=== PATIENT | female | born 1990 | race Caucasian/White ===

== ENCOUNTER 2023-02-17 12:05 | Outpatient (CLI) | payer OTHER, SELFPAY ==
--- NOTE | 2023-02-17 12:15 | CRLHL7_ITS ---
For Patients: As a result of the Century Cures Act, medical imaging exams and procedure reports are released immediately into your electronic medical record. You may view this report before your referring provider. If you have questions, please contact your health care provider. INDICATION: First trimester scan, establish dates. COMPARISON: None. TECHNIQUE: Real-time bunch-scale imaging of the pelvis was performed. FINDINGS: Sonographic imaging demonstrates a single living intrauterine gestation. The embryo demonstrates a regular cardiac rate measuring 177 beats per minute. The embryo`s crown-rump length measurement of 2.4 cm corresponds to a gestational age of 9 weeks 1 day with a sonographic due date of 09/21/2023. There is a normal-appearing yolk sac. There are no gross abnormalities noted within the embryo at this early state of development. The gestational sac has a normal appearance. There is a 1.2 x 2.0 x 1.5 cm perigestational hemorrhage. The amount of fluid within the sac appears appropriate for gestational age. The cervix is closed. The myometrium appears normal. The ovaries are of normal size. Corpus luteal cyst right ovary. There are no suspicious fluid collections noted in the cul-de-sac. IMPRESSION: Single living intrauterine with sonographic gestational age 9 weeks 1 day and sonographic due date 09/21/2023. Subchorionic hemorrhage measuring 1.2 x 2.0 x 1.5 cm. Dictated by Shahzad Craig MD @ 02/17/2023 12:49:15 PM (Electronically Signed)
== END 2023-02-17 12:06 | disposition home or self-care (01) ==
PROVIDERS: Visit Provider Registered Nurse
DX: Z34.91 Encounter for supervision of normal pregnancy, unspecified, first trimester (principal); Z3A.09 9 weeks gestation of pregnancy
CPT/HCPCS: 76817; 86592; 86703; 86762; 86787; 86803; 86850; 86900; 86901; 87086; 87340; 87491; 87591

== ENCOUNTER 2023-05-05 14:01 | Outpatient (CLI) | payer OTHER, SELFPAY ==
--- NOTE | 2023-05-05 14:00 | CRLHL7_ITS ---
For Patients: As a result of the Century Cures Act, medical imaging exams and procedure reports are released immediately into your electronic medical record. You may view this report before your referring provider. If you have questions, please contact your health care provider. INDICATION: Evaluate anatomy. COMPARISON: 02/17/2023 TECHNIQUE: Real time bunch scale imaging of the fetus was performed as well as color Doppler analysis of the umbilical vessels. FINDINGS: Sonographic imaging demonstrates a single living intrauterine gestation. Fetus demonstrates a regular cardiac rate of 138 beats per minute. Fetus has a breech position. The placenta lies posteriorly without evidence of placenta previa. The edge of the placenta is located 7.6 cm from the internal cervical os. Amniotic fluid volume appears normal. Single deepest vertical pocket: 3.9 cm. The cervix is closed and measures 4.4 cm in length. The composite ultrasound gestational age is calculated at 20 weeks 2 days with an estimated sonographic due date of 09/20/2023. The estimated weight is 357 grams which lies at the 66th %. The following biometric measurements were obtained: Biparietal diameter: 4.4 cm/19 weeks 2 days 17th% Head circumference: 17.0 cm/19 weeks 4 days 18th% Abdominal circumference: 15.9 cm/21 weeks 0 days 74th% Femur length: 3.3 cm/20 weeks 1 day 43rd% The HC/AC ratio measures: 1.06 range (1.07-1.25) On anatomic survey, there is a normal appearance of the cerebral ventricles, cavum septi pellucidi, cisterna magna and cerebellum. The nose, lips, and facial profile appear normal. The cervical, thoracic and lumbar spine are well visualized and appear normal. There is a normal four-chamber heart view and the left and right ventricular outflow tracts appear normal. The diaphragm and stomach appear normal. The kidneys and bladder also appear normal. There is a normal three-vessel cord and cord insertion site. The four extremities appear normal. IMPRESSION: Normal OB ultrasound exam with concordance of clinical and sonographic dating. No intrinsic abnormalities noted on anatomic survey. Dictated by Shahzad Craig MD @ 05/06/2023 10:12:47 AM (Electronically Signed)
== END 2023-05-05 14:02 | disposition home or self-care (01) ==
LOC: US 14:01
PROVIDERS: Visit Provider Obstetrics & Gynecology
DX: Z34.92 Encounter for supervision of normal pregnancy, unspecified, second trimester (principal); Z3A.20 20 weeks gestation of pregnancy
CPT/HCPCS: 76805

== ENCOUNTER 2023-07-07 09:45 | Outpatient (CLI) | payer BC, SELFPAY | END 2023-07-07 09:46 | disposition home or self-care (01) | LOC: NFLDREF 07-14 15:40 | PROVIDERS: Visit Provider Obstetrics & Gynecology | DX: Z34.92 Encounter for supervision of normal pregnancy, unspecified, second trimester (principal) | CPT/HCPCS: 86592 ==

== ENCOUNTER 2023-07-14 16:43 | Outpatient (CLI) | payer BC, SELFPAY ==
--- NOTE | 2023-07-14 17:00 | CRLHL7_ITS ---
For Patients: As a result of the Century Cures Act, medical imaging exams and procedure reports are released immediately into your electronic medical record. You may view this report before your referring provider. If you have questions, please contact your health care provider. INDICATION: Size less than dates TECHNIQUE: Limited transabdominal two-dimensional bunch-scale ultrasound examination. COMPARISON: 06/04/2023 FINDINGS: There is a living fetus with gestational age of 30 weeks 1 day by LMP and 31 weeks by today`s measurements. EDC based on LMP is 09/21/2023. BPD: 7.6 cm, 30 weeks 5 days Head circumference: 28.6 cm, 31 weeks 3 days Abdominal circumference: 27.4 cm, 31 weeks 3 days Femur length: 5.8 cm, 30 weeks 1 day The weight is estimated at 1678 grams, the 68th percentile. The heart rate is measured at 129 beats per minute and the rhythm appears regular. The amniotic fluid volume is within normal limits with single-view of the pocket of 7.0 cm. The placenta is posterior and superior to the cervical os. There is no evidence of previa. IMPRESSION: 1. Living fetus with gestational age of 30 weeks 1 day by LMP and 31 weeks by today`s measurements. EDC based on LMP is 09/21/2023. 2. weight estimated at 1670 grams, the 68th percentile. Dictated by René Asencio MD @ 07/16/2023 7:23:09 AM (Electronically Signed)
== END 2023-07-14 16:44 | disposition home or self-care (01) ==
PROVIDERS: PCP Obstetrics & Gynecology; Visit Provider Obstetrics & Gynecology
DX: O36.5930 Maternal care for other known or suspected poor fetal growth, third trimester, not applicable or unspecified (principal); Z3A.30 30 weeks gestation of pregnancy
CPT/HCPCS: 76816

== ENCOUNTER 2023-08-23 11:17 | Outpatient (CLI) | payer BC, SELFPAY ==
[2023-08-24 12:06] LABS: Strep B DNA Probe Negative (Negative)
[2023-08-24 12:47] LABS: Strep B Susceptibility Needed? No
== END 2023-08-23 11:18 | disposition home or self-care (01) ==
PROVIDERS: Visit Provider Obstetrics & Gynecology
DX: Z34.93 Encounter for supervision of normal pregnancy, unspecified, third trimester (principal)
CPT/HCPCS: 87081; 87653

== ENCOUNTER 2023-09-27 16:31 | Inpatient (IN) | payer BC, SELFPAY ==
[2023-09-27 16:41] VITALS: PULSE 84; O2SAT 96
[2023-09-27 16:42] VITALS: BP 121/80; PULSE 86; RESP 16; TEMP 36.6
[2023-09-27 16:50] VITALS: BMI 25.5
--- NOTE | 2023-09-27 17:35 | W.PM.LDBA ---
Subjective History of Present Illness Time Seen by Provider: 17:35 Date Seen: 09/27/23 Narrative: Patient is being admitted to Labor and Delivery for cervical ripening and induction of labor. She is a 32 year old at 40 6/7 weeks gestation. Her full history and physical was dictated by Dr. Doan on 09/01/23. Please see this for details. She feels well this evening. Thinks she lost her mucous plug juan past week. Is aware of occasional mild contractions. Fetus is active. 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 Doan on 09/01/2023 Genetic testing: normal, consistent with female 1. H/o depression anxiety during college. Off meds for few years and currently stable. Sees a therapist on a monthly basis. 2. History of anorexia during college. Denies any current concerns about anorexia or weight gain during . 3. History of kidney stones x 3 over the course of 4 years. Encouraged her to avoid calcium carbonate/Tums. 4. Size less than dates 07/14 growth US: EFW: 68th percentile, SDP: 7.0cm, Vertex. Covid: up to date Tdap: Given 07/14/23 Flu: Given RSV: NA H&P: 09/01 by Olimpia OB - Problem Based A/P Additional Plan (1) Post term over 40 weeks: Status: Acute Delivery/Labor/Induction Plan Induction method: Intracervical balloon catheter (40 mL placed in each balloon. Begin slow pit at 2100. IOL to follow tomorrow morning.) OB Result Labs Blood Type: O (+) positive Rubella: immune RPR/VDLR: nonreactive GBS Status: negative HBsAG: negative OB Exam Physical Exam Vital signs: Temp Pulse Resp BP Pulse Ox 97.9 F 86 16 121/80 96 09/27/23 16:42 09/27/23 16:42 09/27/23 16:42 09/27/23 16:42 09/27/23 16:41 Detailed Labor and Delivery Exam Patient Gravid: Yes Dilation (cm): 2 Effacement (%): 70 Cervix position: posterior Consistency: medium Cervical ripeness score: 6 Contraction Frequency: irregular, q2-4 minutes Tachysystole: No Contraction intensity: Mild Fetus (Single) Station: -1 Amniotic Membrane Status: intact Heart Rate Baseline: 130 Monitor Accelerations: Present Monitor Decelerations: None [employer] Variability: Moderate (6-25)
[2023-09-27 18:25] LABS: Basophils Absolute Auto 0.04 K/uL (0.00-0.30); Basophils Percent Auto 0.4 % (0.0-3.0); Eosinophils Absolute Auto 0.15 K/uL (0.00-0.50); Eosinophils Percent Auto 1.4 % (0.0-7.0); Hematocrit 39.2 % (33.0-51.0); Hemoglobin* 13.2 gm/dL (12.0-16.0); Immature Granulocytes Abs Auto 0.04 K/uL (0.00-0.30); Immature Granulocytes Pct Auto 0.4 %; Lymphocytes Absolute Auto 2.47 K/uL (0.90-2.90); Mean Corpuscular HGB Conc 34 gm/dL (32-36); Mean Corpuscular Hemoglobin 30 pg (26-34); Mean Corpuscular Volume 89 fL (80-100); Neutrophils Percent Auto 66.8 % (42.0-72.0); Platelet Count* 254 K/uL (140-440); RDW Coefficient of Variation % 12.5 % (11.5-15.5); Red Blood Count 4.41 m/uL (4.00-5.20); White Blood Count* 10.76 K/uL (4.50-11.00)
[2023-09-27 18:48] LABS: Slide Review Reflex No
[2023-09-27 20:59] VITALS: BP 120/68; PULSE 63; RESP 18; TEMP 36.9
[2023-09-27] MEDS: OXYTOCIN 30 unit/500 ML in NS 30 UNIT/500 ML BAG IVPB (21:00)
[2023-09-27] MEDS: LACTATED RINGERS 1000 ML 1,000 ML 124 ML IV (21:01)
[2023-09-27 21:59] VITALS: BP 110/69; PULSE 63
[2023-09-27 22:59] VITALS: BP 112/70; PULSE 68
[2023-09-27 23:59] VITALS: BP 111/70; PULSE 64; RESP 18; TEMP 36.9
[2023-09-28] VITALS (26 sets, daily range): BP systolic 101–135; BP diastolic 58–89; PULSE 68–142; RESP 12–21; TEMP 36.4–37; O2SAT 95–99
[2023-09-28] MEDS: ONDANSETRON 2 MG/ML inj 4 MG IV (01:26)
[2023-09-28] MEDS: LACTATED RINGERS 1000 ML 1,000 ML 500 ML IV (02:44)
--- NOTE | 2023-09-28 04:07 | W.PM.OBVAGDE ---
OB Procedure Vag Delivery Mother Details Mother Details: The patient is a 32 year-old, 1, Para 0, admitted on 09/27/23 at 40 6/7 weeks gestation for cervical ripening/induction of labor for postdates gestation. At the time of admission, her cervix was posterior, medium consistency, 2 cm dilated, 70% effaced, with vertex at a -1 station. A cook catheter was placed, with 40 mL sterile saline in each balloon at 1730. Low dose pitocin infusion was started at 2100. The Cook fell out at 0110 on 09/28/2023, at which time she began actively laboring. : 1 Para: 0 Weeks Gestation: 40.6 Admission Date: 09/27/23 Additional Details Amniotic Membrane Status: intact Amniotic Membrane Rupture Date: 09/28/23 Amniotic Membrane Rupture Time: 01:48 Amniotic Membrane Fluid Description: Meconium Stained (light) Analgesia/Anesthesia Type: None Waterbirth: No Pitcoin: Yes (maximum of 5 mu/min, decreased to 2 mu/min following SROM) Intrapartal Events: None and Precipitous Labor <3 Hrs Induction Method: Intracervical balloon catheter (with slow pitocin infusion) Labor Onset: 01:10 Complete: 02:25 Pushin:26 Heart: heart tones during second stage were 110 baseline with good variability, some variable and late decelerations with pushing, good return to baseline. Delivery Details Delivery Date: 09/28/23 Delivery Time: 03:33 Route of delivery: Gender: Female Viability: Alive; Heart Rate Present Delivery Details: Delivered over small right mediolateral episiotomy via spontaneous vaginal delivery. Infant was placed on maternal abdomen.? Cord was clamped and cut after a 30-60 second delay. Nose and mouth were bulb suctioned.? weight pending. 1 Minute Interval Total Score: 8 5 Minute Interval Total Score: 9 Additional Details Shoulder Dystocia: No Placenta Delivery Time: 03:37 Placental Delivery Description: Spontaneous Delivery repair: other (See separate operative report) Procedure Done: Global Blood Loss: 250 Laceration: Perineal - 4th Degree (and right labial 1st degree) Episiotomy Description: Right Mediolateral Blood Loss Measurement Type: QBL Bakri Used: No Sponge/Need Count Correct: Yes Cord Vessel Description: 3 Vessels Event Summary Status: Mother and infant were stable after delivery. Disposition: floor
--- NOTE | 2023-09-28 04:19 | PM.PROC ---
Procedure Note Date Seen: 09/28/23 Date of procedure: 09/28/23 Will [facility] bill your pro fee for this procedure?: Yes Pre-op diagnosis: 4th degree perineal laceration, right labial 1st degree laceration Post-op diagnosis: same (plus left labial/periurethral laceration) Procedure: Repair of 4th degree perineal and bilateral labial lacerations. Procedure Description: After obtaining informed consent, the patient was taken to the operating room where general endotracheal anesthesia was obtained without difficulty. She was prepared and draped in the normal sterile fashion in the dorsal lithotomy position. An examination was performed under anesthesia to confirm the extent of the repairs needed. It was apparent that the right mediolateral episiotomy extended inferiorly, in a counter-clockwise fashion to the midline where the anal sphincter and rectal mucosa were disrupted. There is also extension of the defect up the right labia. Another laceration was noted on the left, first degree labial and periurethral. A Roe catheter was sterilely inserted into the bladder. Attention was first turned to the rectal mucosa, which was torn in the midline a distance of 1 cm. The rectal mucosa was reapproximated in the running fashion using a 4-0 Vicryl suture on an SH needle. A second layer was closed over the first to reinforce the closure. The internal and external anal sphincters were grasped where they were retracted bilaterally with Allis clamps. The internal anal sphincter was reapproximated in an end-to-end fashion with three interrupted sutures of 2-0 Vicryl on an SH needle. The external anal sphincter was reapproximated in an end-to-end fashion with three interrupted sutures of 2-[address]-2 needle. The left labia was reapproximated from distal (superior) to proximal (inferior) in a subcuticular fashion using 3-0 Vicryl on an SH needle. A 3-0 Vicryl suture was then used to reapproximate the vaginal mucosa, in a running locking fashion. The suture was continued and used to reapproximate the bulbocavernosus muscles over the sphincter and to rebuild the perineal body. Finally, the suture was used to reapproximate the skin from anal verge back to the introitus, where the suture was tied off at the level of the hymen. The right labial/periurethral laceration was reapproximated in a subcuticular fashion with 3-0 chromic. A few running locking sutures of 3-0 chromic were also needed for hemostasis where the vaginal mucosa tore slightly during the repair. 10 mL 1% lidocaine was then injected into the perineum for postop analgesia. The patient tolerated the procedure well. Sponge, lap, needle, and instrument counts were reported as correct x2. The patient was taken to the recovery room awake and in stable condition. She received 2 g of IV Ancef preoperatively. Anesthesia: GETA Surgeon: Sintia Koo Estimated blood loss (mL): 100 Urine output (mL): 600 Pathology: none sent Condition: stable Disposition: PACU
[2023-09-28] MEDS: CEFAZOLIN 2 GM INJ IVP (05:08)
--- NOTE | 2023-09-28 06:25 | SUR.OPER ---
300 ml of urine in emerson
--- NOTE | 2023-09-28 06:51 | P.ANES_ITS ---
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
--- NOTE | 2023-09-28 07:22 | SUR.PHASEI ---
patient met discharge criteria per anesthesia
[2023-09-28] MEDS: ACETAMINOPHEN 500 MG TABLET 1000 MG PO ×3 (08:04→20:28)
[2023-09-28] MEDS: DOCUSATE SODIUM 100 MG CAPSULE PO ×2 (09:26→20:28)
[2023-09-28] MEDS: KETOROLAC 30 MG/ML inj IVP ×2 (12:46→18:37)
[2023-09-29 00:35] VITALS: BP 108/71; PULSE 66; RESP 16; TEMP 36.6; O2SAT 96
[2023-09-29] MEDS: KETOROLAC 30 MG/ML inj IVP ×3 (00:37→12:46)
[2023-09-29] MEDS: ACETAMINOPHEN 500 MG TABLET 1000 MG PO ×4 (03:38→21:25)
--- NOTE | 2023-09-29 07:12 | PM.OBPNVD1 ---
OB - PN:Subj Subjective Time Seen by Provider: 07:15 Date Seen: 09/29/23 Narrative: Karla is a 32yo seen on PPD1 from precipitous complicated by RML episiotomy and 4th degree laceration. Her was uncomplicated. Patient is feeling well today with no acute concerns. We reviewed her labor course in detail, where she said things were more intense than she had expected but that she feels the experience was good. She is understandably apprehensive about her bottom healing, where we discussed perineal care. She does have some tenderness on the perineum, but overall her pain is well controlled with ibuprofen and Tylenol. Lochia is moderate, decreasing with time. She is passing gas, no bowel movement. Voiding spontaneously without difficulty. Appetite is good, no nausea or vomiting. She ambulates without dizziness or lightheadedness. Karla is baby Sonali. She feels this is going well but is excited to meet with today for additional support. OB - PN: Obj Exam Physical Exam: Vital signs: Temp Pulse Resp BP Pulse Ox O2 Del Method 97.8 F 66 16 108/71 96 Room Air 09/29/23 00:35 09/29/23 00:35 09/29/23 00:35 09/29/23 00:35 09/29/23 00:35 09/29/23 00:35 Narrative: General: Alert and oriented, in no acute distress Psych: Appropriate mood and affect Abdomen: Soft, nondistended. Fundus at 1 below umbilicus. Nontender. Pelvic: External genital exam significant for ecchymosis and some edema along her 4th degree repair line. Incision itself is well approximated, no erythema or drainage. Extremities: Trace pedal edema Urinary Catheter Management: Urethral: Cath placed during this visit: yes Urethral indwelling: No Insertion date: 09/28/23 Insertion time: 05:10 OB - PN: Obj Data Labs Labs: Laboratory Results - last 24 hr 09/29/23 06:40 Hgb 10.0 L OB - PN: A/P Delivery Assessment and Plan (1) Fourth degree perineal laceration during delivery: Status: Acute (2) (normal spontaneous vaginal delivery): Status: Acute (3) care and examination of lactating mother: Status: Acute Plan Karla is a 32yo seen on PPD1 from precipitous complicated by RML episiotomy and 4th degree laceration. She is feeling well and is meeting all appropriate milestones. She does have tenderness on her bottom, where exam was requested. There is some ongoing edema and ecchymosis along her incision line, but otherwise the tissue was well approximated and without erythema/drainage. VS reviewed and are within normal limits. AM Hgb of 10.0 from 13.2. Plan to recheck this tomorrow morning given tissue trauma with delivery, sooner as clinically indicated. Plan ongoing cares and support. Anticipate dismissal to home tomorrow.
[2023-09-29] MEDS: DOCUSATE SODIUM 100 MG CAPSULE PO ×2 (09:32→21:25)
[2023-09-29] MEDS: polyethylene glycoL 3350 17 GM PACK PO (09:32)
[2023-09-29 09:36] VITALS: BP 97/62; PULSE 80; RESP 16; TEMP 37.1; O2SAT 98
[2023-09-29] MEDS: IBUPROFEN 600 MG TABLET PO ×2 (17:11→23:29)
[2023-09-29 17:12] VITALS: BP 104/67; RESP 16; TEMP 36.4; O2SAT 98
[2023-09-30 00:55] VITALS: BP 119/79; PULSE 79; RESP 16; TEMP 36.5; O2SAT 97
[2023-09-30] MEDS: ACETAMINOPHEN 500 MG TABLET 1000 MG PO ×2 (03:39→10:11)
[2023-09-30] MEDS: IBUPROFEN 600 MG TABLET PO (06:39)
[2023-09-30 06:45] LABS: Hemoglobin* 10.2 gm/dL (12.0-16.0)
--- NOTE | 2023-09-30 07:59 | P.DS_ITS ---
DS: Providers Provider Date Seen: 09/30/23 Date of admission: 09/27/23 16:31 Primary care physician: Not a Local Provider Admitting Clinician: Sintia Koo MD Attending Physician on discharge: Amisha Ceron CNM Date of Discharge: 09/30/23 DS: Diagnosis Discharge Diagnosis (1) care and examination of lactating mother: Status: Acute (2) Fourth degree perineal laceration during delivery: Status: Acute (3) Lactating mother: Status: Acute Exam Narrative: Exam Narrative: GENERAL APPEARANCE:? normal affect, alert, no distress MOOD:? appropriate CHEST:? clear to auscultation HEART:? regular rate and rhythm ABDOMEN:? soft, non-tender the uterine fundus is firm cm Umbilicus, Midline and is appropriate for the stage of recovery. PERINEUM:? mild edema of the perineum, there is a Perineal Laceration,? 4th degree that is healing well. EXTREMITIES:? normal and trace edema Const: Vital Signs, click to edit/add: Vital Signs - 24 hr 09/29/23 09:36 09/29/23 17:12 09/30/23 00:55 Temperature 98.8 F 97.6 F 97.7 F Pulse Rate [Left P ulse Oximeter] 80 79 Respiratory Rate 16 16 16 Blood Pressure [Ri ght Arm] 97/62 104/67 119/79 Pulse Oximetry 98 98 97 Oxygen Delivery Me thod Room Air Room Air Documenting provider has reviewed patient's vital signs: yes OB - DS: Summary Hospital Course Hospital Course: Karla is a 32 y.o. who was admitted to L & D for labor. ?She had an uncomplicated NVD with a 4th degree tear.?The patient feels well. ?The pain is well controlled with current medications. ?She has no new complaints. ?She is breast feeding and reports things are going well.? the patient has done well.? Vitals have been stable.? She has remained afebrile.? Has a good appetite, is tolerating a general diet. ?She is voiding without difficulty.? She is passing gas and has not yet had a bowel movement.? She is ambulating and denies any dizziness.? Has Small amount of rubra lochia. ?She is undecided about prevention. Peripartum Data delivery method: Vaginal Laceration description: Perineal - 4th Degree Procedures: Procedures Operation Date: 09/28/23 04:40 Actual Procedure Side Surgeon p 4th DEGREE TEAR, BILATERAL LABIAL REPAIR Poppy Avitia MD complications: none [place] Gender: Female Discharge Plan: Home Status at Discharge Functional status at discharge: independent ambulation Overall status at discharge: patient is progressing back to baseline Time Spent with Patient Time attestation: Total time spent providing and/or coordinating discharge services: Time spent: Less than 30 minutes Discharge Plan Discharge Disposition: Home, Self-Care Date of Admission: 09/27/23 16:31 Attending Provider on Discharge: Amisha Ceron Primary Care Provider: Provider,Not a Local Condition: Stable Anticipated Discharge Date/Time: 09/30/23 12:00 Discharge Medications: New acetaminophen 500 mg Tablet 1,000 mg PO Q6H PRNQty: 0 0RF ibuprofen 600 mg Tablet 600 mg PO Q6H PRNQty: 90 0RF sennosides-docusate sodium [Senna with Docusate Sodium] 8.6-50 mg tablet 2 tab-cap PO QHS Qty: 90 2RF Continued DHA 200 mg capsule 300 mg PO DAILY omega [id number] oil [Fish Oil] 1,000 mg (120 mg-180 mg) capsule 1 cap PO QDAY Discharge Orders: Discharge Order (Routine); Ordered 09/30/23 Ordered By: Amisha Ceron Patient Education: OB Over the Counter Medication Information, OB Vaginal/Breast Feeding Additional Instructions: Discharge instructions were reviewed with the patient including signs and symptoms of infection and home going medications Do not drive while taking narcotic pain medication(s) Off Work or School for 6 weeks 2-week visit: discuss feeding concerns, review control options and screen for anxiety/depression. 6-week visit for an annual exam. consultation services are available to all mothers and babies for the first year after delivery.? To make an appointment, please call [phone]. Activity Level: Activity as Tolerated Discharge Diet: Regular Follow Up Appointments: Provider,Not a Local [Primary Care Provider] - [facility] [Provider Group] Forms: [employer] Info Instructions
[2023-09-30 08:16] LABS: Rapid Plasma Reagin (RPR) Non Reactive (Non Reactive)
[2023-09-30] MEDS: DOCUSATE SODIUM 100 MG CAPSULE PO (08:37)
[2023-09-30] MEDS: polyethylene glycoL 3350 17 GM PACK PO (08:37)
[2023-09-30 08:42] VITALS: BP 112/73; PULSE 78; RESP 16; TEMP 36.6; O2SAT 98
== END 2023-09-30 13:00 | disposition home or self-care (01) | DRG 560 ==
PROVIDERS: Obstetrics & Gynecology; Admitting Provider Obstetrics & Gynecology; Visit Provider Obstetrics & Gynecology
PROC: 0UQG0ZZ Repair Vagina, Open Approach (ICD-10-PCS; principal; 2023-09-28 04:30)
DX: O48.0 Post-term pregnancy (principal); O70.3 Fourth degree perineal laceration during delivery; O77.0 Labor and delivery complicated by meconium in amniotic fluid; O70.0 First degree perineal laceration during delivery; O62.3 Precipitate labor; O99.344 Other mental disorders complicating childbirth; F41.9 Anxiety disorder, unspecified; F32.A Depression, unspecified; R63.0 Anorexia; Z87.442 Personal history of urinary calculi; Z37.0 Single live birth; Z3A.40 40 weeks gestation of pregnancy
CPT/HCPCS: 00940; 36415; 59200; 85018; 85025; 86592; 86850; 86900; 86901; 99140; A9270; C1726; J0330; J0690; J1100; J1885; J2371; J2405; J2704; J3010; J7120

== ENCOUNTER 2023-11-03 13:04 | Outpatient (CLI) | payer BC, SELFPAY ==
--- NOTE | 2023-11-03 17:00 | W.PM.LAC.MC ---
Consult Note - Mom Date of Visit Date of visit: 11/03/23 senior erp consultant: Justyna Edwards Visit Code: Visit Patient's Information Phone number: [phone] : 1 Para: 1 Allergies Penicillins Allergy (Mild, Verified 11/10/23 10:03) Mother's Medical History: Medical History (Updated 10/08/23 @ 00:01 by Background Daemon) Anorexia ?R63.0 - Anorexia (ICD-10) Anxiety and depression ?F41.9 - Anxiety disorder, unspecified (ICD-10) ?F32.A - Depression, unspecified (ICD-10) Type of Contraception: IUD? 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 Delivery Information Delivery type: Vaginal Weeks Gestation: 41.0 Gestational Age: AGA Weight: 3.81 kg Discharge Weight: 3.569 kg Baby's Information Baby's Age at Visit: 5 weeks Baby's Provider or Clinic: Madeleine Sanders NP Jaundice: No Reason for Consult Reason for Consult: spitting up, concern for transfer (baby isn't satisfied) Past Experience Past Experience: No Current Frequency of Day Feedings: 2 - 2.5 hours Frequency of Night Feedings: 2 - 3 times overnight Both Breasts: No (mom offers but baby will usually only nurse on one side) Suck: strong Latch: wide Length of Time: about 10 min/side Pumping Pumping: No Supplementing EMB Supplement: No Formula Supplement: No Baby Elimination Number of Wet Diapers a Day: every feeding Number of BM a Day: 2 - 4 times/day Breast/Nipple Condition Breast Information: WNL Maternal Nipple Condition - Left: Common Nipple Maternal Nipple Condition - Right: Common Nipple Sore Nipples: No Onsite Pre-Feed weight: 5.112 kg Post-Feed weight: 5.294 kg Milk Transferred (mL): 182 Assessments/Interventions Assessments/Interventions: Met with mom and this now 5 week old ex- term AGA baby for consult. Mom is concerned b/c baby is still spitting up quite frequently (she was seen for this concern on 10/14 and was determined to be a happy spitter). She's also concerned b/c baby is sometimes restless as she gets towards the end of the feeding and she's not sure if baby is satisfied or not. Baby is nursing every 2 - 2.5 hours during the day and gives mom one 5-hour stretch of sleep overnight. She nurses on one side for about 10 minutes, mom offers the other side but baby usually won't take it. Mom hasn't started consistently pumping or giving any supplement. Breasts WNL- symmetrical with rounded lower quadrants, intramammary distance is < 1.5 inches. Nipples are everted and don't flatten or invert on compression, no damage noted. Baby has gained 43 grams/day since her last visit on 10/14 and she's tracking along the 85th percentile on the growth chart. Mom denied any caput/cephalohematoma at delivery and reports baby has equal ROM when turning her head and moving her extremities. Her palate and upper frenulum are WNL. She has a strong suck on a finger and her tongue easily extends past the gum line but does have a little indentation at the tip when extended. Her lower frenulum is ? posterior. Mom latched baby to the left side in the cradle hold and baby had no trouble getting a wide latch. Mom was comfortable and baby nursed about 10 minutes. At this feeding she didn't come off when mom's let down occurred, but she did pull back to just the nipple. When this happened mom became more uncomfortable, unlatched baby, burped her, and offered that side again. Baby latched without issue and mom was coached to try breast compression if she started to get restless as the flow slowed. Mom tried this with some success and baby nursed about 10 more minutes. Mom wanted to try the side lying position on the right side and was able to latch baby comfortably after a few attempts. Baby was much sleepier on this side but nursed about 5 minutes and when weighed had transferred 182 ml (6 oz). Reviewed with mom that an increase in abdominal discomfort seems to occur around the first month and resolves in the second month. Also reviewed s/s of reflux which baby is not exhibiting. Gave mom some ideas to help with a fast letdown and encouraged her to try breast compression if she thinks baby is getting restless as the flow slows (or switching her to the other side like she has been is a great idea). Reviewed that she has a great supply, baby is growing well, the latch and positioning looked good. Plan: 1. Continue nursing baby ALD, offering both sides but it's ok if she only wants one side. 2. Suggested dad introduce a bottle daily or every other day this week or next at the latest. 3. Suggested mom pump once/day or every few days. 4. Baby will f/u for a 2 month C and encouraged mom to consider Baby Talk. Meds Home Medications and Allergies Home Medications Medication Instructions Recorded Confirmed Type docosahexaenoic acid 200 mg 300 mg PO DAILY 02/17/23 11/10/23 History capsule ( DHA) omega [id number] oil 1,000 mg 1 cap PO QDAY 02/17/23 11/10/23 History (120 mg-180 mg) capsule (Fish Oil) Allergies Allergy/AdvReac Type Severity Reaction Status Date / Time Penicillins Allergy Mild Verified 11/10/23 10:03
== END 2023-11-03 13:05 | disposition home or self-care (01) ==
LOC: OB LAC 13:05
PROVIDERS: PCP Registered Nurse; Visit Provider Obstetrics & Gynecology
DX: Z39.1 Encounter for care and examination of lactating mother (principal)
CPT/HCPCS: G0463

== ENCOUNTER 2025-01-31 13:13 | Outpatient (CLI) | payer BC, SELFPAY | END 2025-01-31 13:14 | disposition home or self-care (01) | PROVIDERS: Visit Provider Physician Assistant Medical | DX: Z00.00 Encounter for general adult medical examination without abnormal findings (principal); Z13.228 Encounter for screening for other metabolic disorders; Z13.6 Encounter for screening for cardiovascular disorders; Z13.21 Encounter for screening for nutritional disorder; F41.8 Other specified anxiety disorders | CPT/HCPCS: 80053; 80061; 82306; 84443 ==